=== PATIENT | female | born 2000 | race Caucasian/White ===

== ENCOUNTER 2021-12-30 08:32 | Emergency (ER) | payer OTHER, BC | END 2021-12-30 10:54 | disposition home or self-care (01) | LOC: JP.ED 08:32 | DX: F41.9 Anxiety disorder, unspecified (principal); R42 Dizziness and giddiness | CPT/HCPCS: 36415; 80053; 85025; 99284 ==

== ENCOUNTER 2022-10-30 16:27 | Emergency (ER) | payer OTHER, BC ==
[2022-10-30] MEDS ORDERED: Silver Nitrate Applicator Each ONE (17:34)
[2022-10-30] MEDS ORDERED: Silver Nitrate Applicator Each TOP ONE (17:54)
== END 2022-10-30 17:50 | disposition home or self-care (01) ==
LOC: JP.ED 16:27
DX: L76.22 Postprocedural hemorrhage of skin and subcutaneous tissue following other procedure (principal); Z72.0 Tobacco use; Z88.8 Allergy status to other drugs, medicaments and biological substances
CPT/HCPCS: 99283

== ENCOUNTER 2023-03-08 19:16 | Emergency (ER) | payer BC, OTHER ==
[2023-03-08] MEDS ORDERED: Potassium Chloride 20 MEQ Tab.ER PO ONE (20:37)
[2023-03-08] MEDS ORDERED: Acetaminophen 500 MG Tab PO ONE (20:41)
== END 2023-03-08 20:57 | disposition home or self-care (01) ==
LOC: JP.ED 19:16
DX: A09 Infectious gastroenteritis and colitis, unspecified (principal); E87.6 Hypokalemia; Z88.8 Allergy status to other drugs, medicaments and biological substances
CPT/HCPCS: 36415; 80048; 85025; 99284; A9270

== ENCOUNTER 2023-09-19 14:11 | Emergency (ER) | payer OTHER | END 2023-09-19 17:06 | disposition home or self-care (01) | LOC: JP.ED 14:11 | DX: J02.9 Acute pharyngitis, unspecified (principal); Z88.5 Allergy status to narcotic agent; Z88.8 Allergy status to other drugs, medicaments and biological substances; Z79.899 Other long term (current) drug therapy | CPT/HCPCS: 36415; 86308; 87070; 87077; 87651-QW; 99283 ==

== ENCOUNTER 2023-09-24 18:27 | Emergency (ER) | payer OTHER ==
[2023-09-24] MEDS ORDERED: cefTRIAXone 500 MG, Lidocaine 1% 1 ML IM ONE ×2 (18:56)
[2023-09-26 18:00] LABS: HEPATITIS B SURFACE ANTIBODY 34.97 IU/L
[2023-09-26 18:13] LABS: HEPATITIS A ANTIBODY, IGM Negative (Negative); HEPATITIS B CORE ANTIBODY, IGM Negative (Negative); HEPATITIS B SURFACE ANTIGEN Negative (Negative); HEPATITIS C AB CIA INTERP Negative (Negative); HEPATITIS C ANTIBODY CIA INDEX 0.03 IV
[2023-09-26 18:59] LABS: HEPATITIS BE ANTIGEN Negative (Negative)
[2023-09-27 00:47] LABS: RAPID PLASMA REAGIN (RPR) Non Reactive (Non Reactive)
[2023-09-27 09:10] LABS: APTIMA MEDIA TYPE Urine; C. TRACHOMATIS BY TMA Negative (Negative); N. GONORRHOEAE BY TMA Negative (Negative); SPECIMEN SOURCE Urine
[2023-09-27 20:48] LABS: APTIMA MEDIA TYPE MultiTest Swab; C. TRACHOMATIS BY TMA Negative (Negative); N. GONORRHOEAE BY TMA Negative (Negative); SPECIMEN SOURCE Throat
== END 2023-09-24 20:21 | disposition home or self-care (01) ==
LOC: JP.ED 18:27
DX: Z11.3 Encounter for screening for infections with a predominantly sexual mode of transmission (principal); Z88.5 Allergy status to narcotic agent; Z88.8 Allergy status to other drugs, medicaments and biological substances; Z79.899 Other long term (current) drug therapy
CPT/HCPCS: 36415; 80074; 86592; 86706; 87210; 87350; 87449; 87491; 87591; 96372; 99283; J0696